=== PATIENT | male | born 1970 | race African-American/Black ===

== ENCOUNTER 2016-11-11 21:18 | Emergency (ER) | payer BC ==
[~2016-11-11] VITALS: Ht 188 cm; Wt 108.9 kg
[~2016-11-11 21:18] MED LIST: BENADRYL25 MG ORAL; ERYTHROMYCIN3.5 GM RIGHT EYE; NKM; PROMETHAZINE-C118 M1 ORAL
[2016-11-11 21:49] VITALS: BP 142/92
--- NOTE | 2016-11-11 21:52 | Emergency Room Report ---
History of Present Illness General Chief Complaint: General Complaint Source: Patient Present Illness HPI Is a 46-year-old male with no past medical history. Does have a history of occasional anxiety. He present with chief complaint of headache for the last couple days. Comes and go. Better with ibuprofen. He remembered that he had blood pressure cuff at home he took it. Blood pressures running 160/100. He denies any other symptoms. No nausea no vomiting. No chest pain. No hematuria. No edema. Allergies: Coded Allergies: No Known Allergies (Unverified , 01/07/14) Patient History Past Medical History: none, see triage record, old chart reviewed Past Surgical History: none Pertinent Family History: none Social History: Reports: smoking Immunizations: other Reviewed Nursing Documentation: PMH: Agreed, PSxH: Agreed Nursing Documentation-PMH Past Medical History: No Stated History Hx Cardiac Problems: No Hx Hypertension: No Hx Pacemaker: No Hx Asthma: No Hx COPD: No Hx Diabetes: No Hx Cancer: No Hx Gastrointestinal Problems: No Hx Dialysis: No Hx Neurological Problems: No Hx Cerebrovascular Accident: No Hx Seizures: No Review of Systems Eye: Denies: blurred vision, eye pain ENT: Denies: ear pain, nose congestion, throat swelling Respiratory: Denies: cough, shortness of breath Cardiovascular: Denies: chest pain, palpitations Gastrointestinal: Denies: abdominal pain, diarrhea, nausea, vomiting Musculoskeletal: Denies: back pain, joint pain Skin: Denies: rash Neurological: Reports: headache, Denies: numbness Endocrine: Denies: increased thirst, increased urine Hematologic/Lymphatic: Denies: easy bruising All Other Systems: negative except mentioned in HPI Physical Exam Vital Signs Date Time Temp Pulse Resp B/P Pulse Ox O2 Delivery O2 Flow Rate FiO2 11/11/16 21:40 97.9 81 17 142/92 98 Room Air vitals unremarkable Sp02 EP Interpretation: reviewed, normal General Appearance: well appearing, no apparent distress, alert Head: normocephalic, atraumatic Eyes: bilateral eye EOMI, bilateral eye PERRL ENT: hearing grossly normal, normal pharynx Neck: full range of motion, supple, no meningismus Respiratory: chest non-tender, lungs clear, normal breath sounds Cardiovascular #1: regular rate, rhythm, no murmur Gastrointestinal: normal bowel sounds, non tender, no mass, no organomegaly, no bruit, non-distended Musculoskeletal: back normal, gait/station normal, normal range of motion Psychiatric: mood/affect normal Skin: warm/dry Medical Decision Making Diagnostic Impression: Primary Impression: Headache Qualified Codes: R51 - Headache Additional Impression: Hypertension Qualified Codes: I10 - Essential (primary) hypertension ER Course Patient presents with headache. This may be related to tension versus blood pressure. No focal deficit. No evidence of TIA or CVA. No evidence of bleed or neoplastic process. We'll start him on a water pill. We'll have her followup with his doctor in a week to recheck. Last Vital Signs Date Time Temp Pulse Resp B/P Pulse Ox O2 Delivery O2 Flow Rate FiO2 11/11/16 21:49 17 142/92 98 Room Air 11/11/16 21:40 97.9 81 Status: improved Disposition: HOME, SELF-CARE Condition: Stable Scripts Chlorothiazide (CHLOROTHIAZIDE) 250 Mg Tablet 250 MG PO DAILY, #30 TAB Prov: DARSHAN DREW M.D. 11/11/16 Additional Instructions: Stop smoking. Followup with your DrChaya in 7 days. Keep a diary of your blood pressure readings. Return if symptom worsen. DARSHAN DREW M.D. Nov 11, 2016 21:52
[2016-11-11 21:57] VITALS: BP 142/92
[2016-11-11] MEDS ORDERED: CHLOROTHIAZIDE250 MG PO (22:02)
== END 2016-11-11 22:07 | disposition home or self-care (01) ==
LOC: EMR 21:58
DX: R51 Headache (principal); I10 Essential (primary) hypertension; F17.200 Nicotine dependence, unspecified, uncomplicated
CPT/HCPCS: 99283

== ENCOUNTER 2018-01-31 01:08 | Emergency (ER) | payer BC ==
[~2018-01-31] VITALS: Ht 188 cm; Wt 107.5 kg
[~2018-01-31 01:08] MED LIST changes: +CHLOROTHIAZIDE250 MG PO
[2018-01-31 01:22] VITALS: BP 178/105
[2018-01-31] MEDS ORDERED: Tylenol #3 tab (300mg/30mg) ORAL ONE (01:30)
[2018-01-31 02:03] LABS: BASOPHILS % (AUTO) 0.9 % (0.0-2.0); EOSINOPHILS % (AUTO) 2.1 % (0.0-3.0); HEMATOCRIT 45.6 % (42.0-52.0); HEMOGLOBIN 15.3 G/DL (14.2-18.0); LYMPHOCYTES % (AUTO) 31.1 % (20.0-45.0); MEAN CORPUSCULAR VOLUME 85 FL (80-99); MONOCYTES % (AUTO) 9.2 % (1.0-10.0); NEUTROPHILS % (AUTO) 56.6 % (45.0-75.0); PLATELET COUNT 229 K/UL (150-450); RED BLOOD COUNT 5.39 M/UL (4.70-6.10); RED CELL DISTRIBUTION WIDTH 12.1 % (11.6-14.8); WHITE BLOOD COUNT 7.1 K/UL (4.8-10.8)
[2018-01-31 02:05] LABS: ANION GAP 9 mmol/L (5-15); BLOOD UREA NITROGEN 9 mg/dL (7-18); CALCIUM 8.6 MG/DL (8.5-10.1); CARBON DIOXIDE 27 MMOL/L (21-32); CHLORIDE 102 MMOL/L (98-107); CREATININE 1.1 MG/DL (0.55-1.30); SODIUM 138 MMOL/L (136-145)
[2018-01-31 02:11] LABS: CREATINE KINASE 124 U/L (26-308)
[2018-01-31 02:22] VITALS: BP 182/104
[2018-01-31] MEDS ORDERED: Metoprolol 5mg/5ml Inj IVP ONE (02:30)
[2018-01-31] MEDS ORDERED: DiphenhydrAMINE 50mg/ml Inj IVP ONE (02:45)
--- NOTE | 2018-01-31 03:12 | Emergency Room Report ---
History of Present Illness General Chief Complaint: Headache Source: Patient Present Illness HPI Patient presents with complaints of cluster type headache involving the right facial area also being on the right eye He reports he took Motrin His blood pressure however also state elevated And therefore he was concerning came to the ER Denies any focal weakness denies any chest pain or shortness of breath denies any back or flank pain denies any recent trauma Patient reports that he does not take any medications for blood pressure Allergies: Coded Allergies: No Known Allergies (Unverified , 01/07/14) Patient History Past Medical History: see triage record Pertinent Family History: none Reviewed Nursing Documentation: PMH: Agreed; PSxH: Agreed Nursing Documentation-PMH Past Medical History: No Stated History Hx Cardiac Problems: No Hx Hypertension: No Hx Pacemaker: No Hx Asthma: No Hx COPD: No Hx Diabetes: No Hx Cancer: No Hx Gastrointestinal Problems: No Hx Dialysis: No Hx Neurological Problems: No Hx Cerebrovascular Accident: No Hx Seizures: No Review of Systems All Other Systems: negative except mentioned in HPI Physical Exam Vital Signs Date Time Temp Pulse Resp B/P (MAP) Pulse Ox O2 Delivery O2 Flow Rate FiO2 01/31/18 01:11 98.2 70 18 176/100 98 Room Air 98.2 Sp02 EP Interpretation: reviewed, normal General Appearance: well appearing, no apparent distress Head: normocephalic, atraumatic Eyes: bilateral eye PERRL, bilateral eye EOMI ENT: hearing grossly normal, normal pharynx, TMs + canals normal, uvula midline Neck: full range of motion, supple, no meningismus, no bony tend Respiratory: lungs clear, normal breath sounds, no rhonchi, no respiratory distress, no retraction, no accessory muscle use Cardiovascular #1: normal peripheral pulses, regular rate, rhythm, no edema, no gallop, no JVD, no murmur Gastrointestinal: normal bowel sounds, non tender, soft, no mass, no organomegaly, non-distended, no guarding, no hernia, no pulsatile mass, no rebound Genitourinary: no CVA tenderness Musculoskeletal: normal inspection Neurologic: oriented x3, responsive, curriculum director III-XII nml as tested, motor strength/ tone normal, sensory intact Psychiatric: mood/affect normal Skin: normal color, no rash, warm/dry, palpation normal Lymphatic: normal inspection, no adenopathy Medical Decision Making Diagnostic Impression: Primary Impression: Headache ER Course Patient presents somewhat hypertensive headache description with pain to the right facial area also behind the right eye appears to be likely cluster type in nature patient is provided with oxygen a medication Initial attempt at blood pressure control did improve his blood pressure At this time patient requires multiple repeat pressure exams outpatient Given his hypertensive presentation here will be placed on initial medication Blood work is otherwise normal Patient had previously had evidence of elevated total CK but normal today and is stable for close outpatient follow-up Patient does not meet criteria for acute imaging given the criteria and the clinical findings Labs Test 01/31/18 01:30 White Blood Count 7.1 K/UL (4.8-10.8) Red Blood Count 5.39 M/UL (4.70-6.10) Hemoglobin 15.3 G/DL (14.2-18.0) Hematocrit 45.6 % (42.0-52.0) Mean Corpuscular Volume 85 FL (80-99) Mean Corpuscular Hemoglobin 28.3 PG (27.0-31.0) Mean Corpuscular Hemoglobin Concent 33.5 G/DL (32.0-36.0) Red Cell Distribution Width 12.1 % (11.6-14.8) Platelet Count 229 K/UL (150-450) Mean Platelet Volume 7.3 FL (6.5-10.1) Neutrophils (%) (Auto) 56.6 % (45.0-75.0) Lymphocytes (%) (Auto) 31.1 % (20.0-45.0) Monocytes (%) (Auto) 9.2 % (1.0-10.0) Eosinophils (%) (Auto) 2.1 % (0.0-3.0) Basophils (%) (Auto) 0.9 % (0.0-2.0) Sodium Level 138 MMOL/L (136-145) Potassium Level 4.0 MMOL/L (3.5-5.1) Chloride Level 102 MMOL/L (98-107) Carbon Dioxide Level 27 MMOL/L (21-32) Anion Gap 9 mmol/L (5-15) Blood Urea Nitrogen 9 mg/dL (7-18) Creatinine 1.1 MG/DL (0.55-1.30) Estimat Glomerular Filtration Rate > 60 mL/min (>60) Glucose Level 145 MG/DL (74-106) Calcium Level 8.6 MG/DL (8.5-10.1) Total Creatine Kinase 124 U/L (26-308) Urine Opiates Screen Negative (NEGATIVE) Urine Barbiturates Screen Negative (NEGATIVE) Phencyclidine (PCP) Screen Negative (NEGATIVE) Urine Amphetamines Screen Negative (NEGATIVE) Urine Benzodiazepines Screen Negative (NEGATIVE) Urine Cocaine Screen Negative (NEGATIVE) Urine Marijuana (THC) Screen Negative (NEGATIVE) Rhythm Strip Diag. Results EP Interpretation: yes Rate: 77 Rhythm: NSR, no PVC's, no ectopy Last Vital Signs Date Time Temp Pulse Resp B/P (MAP) Pulse Ox O2 Delivery O2 Flow Rate FiO2 01/31/18 02:32 81 182/104 01/31/18 02:22 208.8 18 99 Room Air 208.8 Status: improved Disposition: HOME, SELF-CARE Condition: Improved Scripts Amlodipine Besylate (Norvasc) 5 Mg Tablet 5 MG ORAL DAILY, #20 TAB Prov: Ang Maki DO 01/31/18 Acetaminophen With Codeine (T#3) (TYLENOL #3 TAB*) Y Tab 1 TAB ORAL Q8H PRN for For Pain, #10 TAB Prov: Ang Maki DO 01/31/18 Ibuprofen* (MOTRIN*) 600 Mg Tablet 600 MG ORAL Q8H PRN for For Pain, #20 TAB 0 Refills Prov: Ang Maki DO 01/31/18 Referrals: NOT CHOSEN IPA/MD,REFERRING (PCP) Additional Instructions: Patient is provided with the discharge instructions notified to follow up with primary doctor in the next 2-3 days otherwise return to the er with any worsening symptoms. Please note that this report is being documented using [employer] technology. This can lead to erroneous entry secondary to incorrect interpretation by the dictating instrument. Ang Maki DO Jan 31, 2018 03:12
[2018-01-31] MEDS ORDERED: IBUPROFEN600 MG ORAL (03:18)
[2018-01-31] MEDS ORDERED: NORVASC5 MG ORAL (03:18)
[2018-01-31] MEDS ORDERED: ACETAMINOPHEN-1 EAC1 ORAL (03:18)
[2018-01-31 03:22] VITALS: BP 161/98
[2018-01-31 03:40] VITALS: BP 182/104
== END 2018-01-31 03:40 | disposition home or self-care (01) ==
LOC: EMR 01:37
DX: R51 Headache (principal)
CPT/HCPCS: 36415; 80048; 80307; 82550; 85025; 96360; 96374; 96375; 99284; J0360; J1200